=== PATIENT | female | born 1970 | race Caucasian/White ===

== ENCOUNTER 2024-02-19 10:26 | Emergency (ER) | payer SELFPAY ==
[~2024-02-19] VITALS: Ht 160 cm; Wt 96.7 kg
[2024-02-19 10:43] VITALS: BP 158/65; PULSE 60; RESP 16; TEMP 97.6; O2SAT 100
[2024-02-19] MEDS ORDERED: LIDO1ADH54 TP (11:02)
[2024-02-19] MEDS ORDERED: CYCL-711 PO (11:02)
[2024-02-19] MEDS ORDERED: IBUP-2218 PO (11:02)
[2024-02-19 11:15] VITALS: BP 150/60; PULSE 60; RESP 16; TEMP 36.44736; O2SAT 100
[2024-02-19] MEDS: KETOROLAC 30 MG/ML VIAL IM ONE (11:15)
[2024-02-19] MEDS: LIDOCAINE 4% 1 EA PATCH TP ONE (11:15)
== END 2024-02-19 11:15 | disposition home or self-care (01) ==
LOC: MED 10:26
DX: M54.41 Lumbago with sciatica, right side (principal); M79.604 Pain in right leg; Z79.899 Other long term (current) drug therapy
CPT/HCPCS: 96372; 99283; J1885